=== PATIENT | female | born 1990 | race Caucasian/White ===

== ENCOUNTER 2018-02-13 15:58 | Outpatient (REF) | payer BC, SELFPAY ==
--- NOTE | 2018-02-13 11:00 | PAPFT_PTH ---
PATIENT: DWIGHT LUO LOC: [facility] U#:[id number] AGE/SX: 27/F ROOM: RE02/13/[address]: Ritika Black RN : 1990 BED: DIS: 02/13/2018 SPEC #: [id number] RECD: 02/13/18 18:50 STATUS: ARNAV REMaxwell #: [id number] NAVI: 02/13/18 11:[address]: Ritika Black DEPT: [facility] Cytology RECD BY: Yanira Guevara ENTERED: 02/13/18 18:50 SP TYPE: PAPFT OTHR DR: Radha Jeff Tissues: 1 - CX/ENDOCX FOR PAP SMEARS Procedures: PAP THIN PREP/UVM Screening Comments: [id number]
== END 2018-02-13 16:18 ==
LOC: LBN 15:58
PROVIDERS: PCP Family Medicine; Visit Provider Advanced Practice Midwife
DX: Z12.4 Encounter for screening for malignant neoplasm of cervix (principal)
CPT/HCPCS: 88142

== ENCOUNTER 2018-03-03 10:34 | Outpatient (CLI) | payer BC, SELFPAY ==
[2018-03-06 14:53] LABS: Chlamydia Result Negative; GC Result Negative; Specimen Description CERVIX
== END 2018-03-03 10:54 ==
PROVIDERS: PCP Family Medicine; Visit Provider Advanced Practice Midwife
DX: Z97.5 Presence of (intrauterine) contraceptive device (principal); Z11.3 Encounter for screening for infections with a predominantly sexual mode of transmission
CPT/HCPCS: 87491; 87591

== ENCOUNTER 2019-02-27 02:20 | Outpatient (CLI) | payer BC, SELFPAY ==
[2019-02-27 08:10] LABS: HCG Quant, Pregnancy < 1 mIU/mL (1-3)
== END 2019-02-27 02:40 ==
PROVIDERS: PCP Family Medicine; Visit Provider Nurse Practitioner Women's Health
DX: O20.9 Hemorrhage in early pregnancy, unspecified (principal); Z32.01 Encounter for pregnancy test, result positive
CPT/HCPCS: 36415; 84702

== ENCOUNTER 2019-04-03 14:19 | Outpatient (CLI) | payer BC, SELFPAY ==
[2019-04-03 15:11] LABS: HCG Quant, Pregnancy 1 mIU/mL (1-3)
== END 2019-04-03 14:39 ==
PROVIDERS: PCP Family Medicine; Visit Provider Nurse Practitioner Family
DX: O20.9 Hemorrhage in early pregnancy, unspecified (principal)
CPT/HCPCS: 36415; 84702

== ENCOUNTER → 2019-08-10 14:51 | Outpatient (REF) | payer BC, SELFPAY ==
[2019-08-10 16:57] LABS: *AMPHETAMINES SCREEN URINE Negative (Negative); *BARBITURATES SCREEN URINE Negative (Negative); *BENZODIAZEPINES SCREEN URINE Negative (Negative); Cannabinoids THC Negative (Negative); Cocaine Screen,Urine Negative (Negative); METHADONE URINE SCREEN Negative (Negative); OPIATES URINE SCREEN Negative (Negative)
[2019-08-10 17:09] LABS: Tricyclic Antidepressants Negative (Negative)
[2019-08-15 12:26] LABS: Buprenorphine Negative; Norbuprenorphine Negative
== END ==
LOC: LBN 14:51
PROVIDERS: PCP Family Medicine; Visit Provider Advanced Practice Midwife
DX: Z34.91 Encounter for supervision of normal pregnancy, unspecified, first trimester (principal)
CPT/HCPCS: 80307; 87086

== ENCOUNTER 2019-08-17 09:24 | Outpatient (CLI) | payer BC, SELFPAY ==
[2019-08-17 10:40] LABS: Abs Immature Grans 0.01 k/cumm (0.0-0.09); Absolute Basophil Count 0.02 k/cumm (0.0-0.2); Absolute Eosinophil Count 0.04 k/cumm (0.0-0.7); Absolute Lymphocyte Count 1.83 k/cumm (1.2-3.4); Absolute Neutrophil Count 5.96 k/cumm (1.2-6.7); Basophils % 0.2; Eosinophils % 0.5; HCT 38.3 % (36.0-46.0); HGB 13.1 g/dL (12.0-15.5); Immature Grans % 0.1 %; Lymphocytes % 21.9; Mean Corp. HGB Concentration 34.2 g/dL (32.0-36.0); Mean Corpuscular Hemoglobin 29.3 pg (27.0-33.0); Mean Corpuscular Volume 85.7 fL (80-95); Mean Platelet Volume 10.3 fL (8.0-11.0); Neutrophils % 71.3; Platelet Count 232 x1000/uL (130-400); RBC 4.47 m/cumm (4.00-5.20); RBC Distribution Width 12.9 % (11.7-14.6); White Blood Cell Count 8.36 k/cumm (4.4-10.8)
[2019-08-17 10:48] LABS: Glucose,1 Hr (Glucola) 109 mg/dL (80-140)
[2019-08-17 11:40] LABS: TSH (W/Ref FT4) 1.44 uIU/mL (0.36-3.74)
[2019-08-18 16:31] LABS: Syphilis Total Ab w/Reflex Nonreactive (Nonreactive)
[2019-08-20 08:56] LABS: Hepatitis B Surface Ag Negative (Negative)
[2019-08-20 10:24] LABS: Hepatitis C Ab w Rflx HCV PCR Negative (Negative)
[2019-08-20 10:39] LABS: HIV-1/2 Ag & Ab Screen Negative (Negative)
[2019-08-20 11:10] LABS: Varicella IgG Antibody Positive (See Note)
[2019-08-20 11:14] LABS: Rubella IgG Ab (UVM) Positive (See Note)
== END 2019-08-17 09:44 ==
PROVIDERS: PCP Family Medicine; Visit Provider Advanced Practice Midwife
DX: Z34.91 Encounter for supervision of normal pregnancy, unspecified, first trimester (principal); Z11.4 Encounter for screening for human immunodeficiency virus [HIV]; Z11.59 Encounter for screening for other viral diseases; Z01.84 Encounter for antibody response examination
CPT/HCPCS: 36415; 82950; 86787; 86803; 86850; 86900; 86901; 87340; 87389; 84443; 85025; 86762; 86780

== ENCOUNTER 2019-10-10 01:25 | Outpatient (CLI) | payer BC, SELFPAY ==
--- NOTE | 2019-10-10 06:30 | DI.US_ITS ---
EXAM: US OB 2-3 TRIMESTER CLINICAL HISTORY: 18 wk anatomy survey,Z34.90. TECHNIQUE: Transabdominal obstetrical ultrasound performed. COMPARISON: No exams were available for comparison FINDINGS: Transabdominal obstetrical ultrasound performed. FINDINGS: Number of fetuses: One. position: Variable heart rate: 140 bpm. Placental location: Anterior. No evidence of previa. A venous Dang is seen near the fundus. BIOMETRIC DATA: EFW: grms % Composite Age: 20 weeks 1 day EDC: 26 February 2020 Amount of fluid is within normal limits. ANATOMICAL SURVEY: Within normal limits. BPD: 47 millimeters, 20 weeks. HC: 178 millimeters, 20+ 2 weeks. AC: 151 millimeters, 20+ 2 weeks. FL: 32 millimeters, 19+ 6 weeks. Cisterna Magna: 3.8 millimeters Cerebellum: 2.1 cm. IMPRESSION: 1. Single live intrauterine gestation as above. 2. Normal anatomic survey. DATA REPOSITORY:
== END 2019-10-10 01:45 ==
PROVIDERS: PCP Family Medicine; Visit Provider Advanced Practice Midwife
DX: Z34.92 Encounter for supervision of normal pregnancy, unspecified, second trimester (principal); Z3A.20 20 weeks gestation of pregnancy
CPT/HCPCS: 76805

== ENCOUNTER 2019-12-19 01:12 | Outpatient (CLI) | payer BC, SELFPAY ==
[2019-12-19 09:38] LABS: Glucose,1 Hr (Glucola) 146 mg/dL (80-140)
[2019-12-19 09:49] LABS: HCT 36.5 % (36.0-46.0); HGB 12.2 g/dL (12.0-15.5); Mean Corp. HGB Concentration 33.4 g/dL (32.0-36.0); Mean Corpuscular Hemoglobin 29.4 pg (27.0-33.0); Mean Platelet Volume 10.9 fL (8.0-11.0); Platelet Count 198 x1000/uL (130-400); RBC 4.15 m/cumm (4.00-5.20); RBC Distribution Width 13.2 % (11.7-14.6); White Blood Cell Count 8.12 k/cumm (4.4-10.8)
== END 2019-12-19 01:32 ==
PROVIDERS: PCP Family Medicine; Visit Provider Advanced Practice Midwife
DX: Z34.93 Encounter for supervision of normal pregnancy, unspecified, third trimester (principal); Z3A.28 28 weeks gestation of pregnancy
CPT/HCPCS: 36415; 82950; 85027

== ENCOUNTER 2019-12-26 03:57 | Outpatient (CLI) | payer BC, SELFPAY ==
[2019-12-26 09:43] LABS: Glucose 1 Hour 120 mg/dL
[2019-12-26 11:15] LABS: Glucose 3 Hour 92 mg/dL
== END 2019-12-26 04:17 ==
PROVIDERS: PCP Family Medicine; Visit Provider Advanced Practice Midwife
DX: R73.09 Other abnormal glucose (principal)
CPT/HCPCS: 36410; 82951

== ENCOUNTER 2020-01-02 02:52 | Outpatient (CLI) | payer BC, SELFPAY | END 2020-01-02 03:12 | PROVIDERS: PCP Family Medicine; Visit Provider Advanced Practice Midwife | DX: R73.09 Other abnormal glucose (principal) | CPT/HCPCS: 36415; 86850; 90384 ==

== ENCOUNTER 2020-01-30 09:39 | Outpatient (REF) | payer BC, SELFPAY | END 2020-01-30 09:59 | LOC: LBN 09:39 | PROVIDERS: PCP Family Medicine; Visit Provider Advanced Practice Midwife | DX: Z34.93 Encounter for supervision of normal pregnancy, unspecified, third trimester (principal) | CPT/HCPCS: 87081 ==

== ENCOUNTER 2020-02-06 19:17 | Outpatient (REF) | payer BC, SELFPAY ==
[2020-02-06 11:19] LABS: *AMPHETAMINES SCREEN URINE Negative (Negative); *BARBITURATES SCREEN URINE Negative (Negative); *BENZODIAZEPINES SCREEN URINE Negative (Negative); Cannabinoids THC Negative (Negative); Cocaine Screen,Urine Negative (Negative); METHADONE URINE SCREEN Negative (Negative); OPIATES URINE SCREEN Negative (Negative)
[2020-02-06 11:20] LABS: Tricyclic Antidepressants Negative (Negative)
[2020-02-13 11:08] LABS: Buprenorphine Negative; Norbuprenorphine Negative
== END 2020-02-06 19:37 ==
LOC: LBN 19:17
PROVIDERS: PCP Family Medicine; Visit Provider Advanced Practice Midwife
DX: Z34.90 Encounter for supervision of normal pregnancy, unspecified, unspecified trimester (principal)
CPT/HCPCS: 80307

== ENCOUNTER 2020-02-26 15:05 | Observation (INO) | payer BC, SELFPAY ==
[2020-02-26 15:31] VITALS: TEMP 36.9
[2020-02-26 15:37] VITALS: BP 128/83; PULSE 104; RESP 18; TEMP 36.9
[2020-02-26 15:52] VITALS: BP 128/83; PULSE 104; TEMP 36.9
--- NOTE | 2020-02-26 16:35 | W.OBNST ---
Date of service: 02/26/20 Time of Service: 15:35 NST Evaluation Reason for NST Reasons for Nonstress Test: FALSE LABOR Gestational Age Gestational Age in Weeks and Days: 39 Weeks and 1Days Test and Monitor Explained Test/Monitor Explained: Test Explained, Monitor Explained and Patient Verbalized Understanding Vital Signs Blood Pressure: 128/83 Pulse: 104 Temperature: 98.4 F Urine Results Urine Protein: Negative Urine Ketones: Negative Urine Glucose: Negative Urine Blood: Negative NST Information Time on Monitor: 15:06 Date off Monitor: 02/26/20 Time off Monitor: 15:50 NST Interventions: PO Hydration Contraction Frequency: q 4, 40 seconds duration, mild NST Evaluation Patient States Movement: Present FHR Baseline: 130 Variability: Moderate 6-25 bpm Accelerations: 15x15 Decelerations: None NST Results: Reactive NST Evaluation Baby B Patient States Movement: Present Variability: Moderate 6-25 bpm Accelerations: 15x15 Decelerations: None NST Results: Reactive Note NST Note Note: Pt seen for increased back pain with mild cramping every 4-5 minutes. SVE 4/75% posterior with vtx -3, intact membranes, pt opts to go home to await active labor NST Reviewed and Verified by: Buffy Jang
[2020-02-26 16:37] VITALS: BP 128/83; PULSE 104; TEMP 36.9
--- NOTE | 2020-02-26 16:38 | W.PM.OBHPL1 ---
Date of service: 02/26/20 Time of Service: 16:38 Assessment and Plan Assessment and plan (1) 39 weeks gestation of : Status: Acute Assessment and plan: presents with primary complaint of back pain for 2 days with irregular mild lower abd cramps, no ROM, no bleeding, last coitus 3 days ago Category 1 tracing, reactive NST, cvx multiparous as noted, possible latent phase early labor vs discomforts of term A: discharge pt to home to await active labor reschedule appt from tomorrow to this Tuesday sx labor reviewed and discussed with pt comfort measures for back pain reviewed OB-HPI Labor/Delivery History of Present Illness Reason for Visit: R/O TERM LABOR Chief Complaint: Uterine Contractions; Other (increased mid-back pain since yesterday, nothing she does makes it feel better. Also feels lower abd cramping but not painful.). SRAVANI Calculator Estimated Delivery Date Method Current WG Current Estimate 03/03/20 LMP (Certain) 39w 1d Other Estimates 03/01/20 Ultrasound #1 39w 3d History of Present Expected Delivery Route/Plan - CNM FOB/ - Cedric Shin (third child together) BB no circ Interested in having waterbirth GBS neg Specific Issues/Plan 1. Declines optional AP testing, declination form signed 2. Breastfed for up to 3 months with each child, would like to go longer this time. 3. BMI 31, early glucola 109 4. Glucola at 29 wks is 146, 3 hr GTT nml x3: 95/120/158/92 (2nd hour elevated) 5. Rh neg, RhoGam at 28 wks - received 01/01 at 31 weeks 6. precipitous labors- partner works far away doing food delivery. Assessment: History Reviewed & Current Review of Systems All systems reviewed & are unremarkable except as noted in HPI and below Constitutional Constitutional: Reports as per HPI, Reports fatigue, Reports lethargy and Reports poor appetite Respiratory Respiratory: Reports as per HPI Gastrointestinal Gastrointestinal: Reports system reviewed and no additional complaints, except as documented Genitourinary Genitourinary: Reports system reviewed and no additional complaints, except as documented Psychiatric Psychiatric: Reports system reviewed and no additional complaints, except as documented Endocrine Endocrine: Reports fatigue [facility] Medical History (Updated 02/26/20 @ 16:44 by Buffy Jang) abnormalpap smears, last 07/01/15 ASCUS POS HPV HPV Vaccines Family History Mother Hyperlipidemia Father Personal history of malignant neoplasm lung cancer Heart disease Myocardial infarction 3 [place] Bypass Sister No problems noted. Brother No problems noted. Brother No problems noted. Brother No problems noted. Son No problems noted. Other Substance abuse Social History (Updated 02/09/18 @ 13:36 by Iesha Ramachandran RN) Smoking/Tobacco Use Status: Former Tobacco Use Quit Date: 07/07/15 Quit status: has quit before Alcohol Intake: never Substance use type: does not use Adopted: No Foster care: No Number of Children: 2 current occupation: [employer] Pets and animals: Yes Pets and animals: cat(s) Current gender identity: female What is your relationship status?: Panel score (0-1 are the most socially isolated patients): 1 Seatbelt use: always Do you feel safe in your relationship?: Yes Female Reproductive History Menstrual control method: progestin IUCD (Mirena lot#[id number] exp 07/2020) History History 4 Para 3 Hx # Term Pregnancies 3 Multiple births 0 Hx # Pregnancies 0 Ectopic pregnancies 0 AB induced 0 Hx Number of Living Children 3 AB spontaneous 0 Past Pregnancies Del. Date GA/Weeks # Outcome Route Wgt Sex Labor Lgth Anesthesia Location Prov Complic 03/05/09 41 No Successful vaginal 6 lb 13 oz Male [address] [facility] 07/02/16 39 Yes Successful vaginal 6 lb 11 oz Female 2-3 hrs [facility] - locums CNM 01/06/18 38 No Successful vaginal 6 lb 11 oz Female 2-3 hr [facility] - [place] Delivery Date: 03/05/09 IOL for postdates Giovani; epidural Buffy Jang Delivery Date: 07/02/16 nml Buffy Fernández Delivery Date: 01/06/18 nml Nelsy Jade Meds Home Medications and Allergies Home Medications Medication Instructions Recorded Confirmed Type prenat.vits,sakina,ywh-clua-muueh 1 tab PO DAILY 02/27/19 02/20/20 History Allergies Allergy/AdvReac Type Severity Reaction Status Date / Time No Known Allergies Allergy Unverified 02/20/20 14:14 Exam Physical Exam Vital signs: Temp Pulse Resp BP 98.4 F 104 H 18 128/83 02/26/20 15:37 02/26/20 15:37 02/26/20 15:37 02/26/20 15:37 Vital Signs Reviewed: Yes Constitutional Constitutional: mild distress and average body habitus Detailed Labor and Delivery Exam Dilation: 4 Effacement (%): 75 station: -3 Cervix position: posterior Consistency: soft Schneider Score: Cervical Points Exam 0 1 2 3 Dilation Closed 1-2cm 3-4 cm 5-6cm Effacement 0-30% 40-50% 60-70% 80% Consistency Firm Medium Soft Station -3 -2 -1,0 +1,+2 Position Posterior Mid Anterior SCHNEIDER Score(Cervical Ripeness Score): 6 Amniotic Membrane Status: Intact Monitor Mode: External Contraction Frequency(min): irregular Contraction Duration(sec): 30-40 seconds Contraction Intensity: Mild Fetus A Heart Rate Baseline: 135 Monitor Accelerations: 15 X 15 Monitor Decelerations: None Variability: Moderate (6-25 BPM) Presentation: Cephalic Categories: Category I Respiratory Exam Respiratory Exam: Normal Cardiovascular Exam Cardiovascular Exam: Normal Abdominal Exam Abdominal Exam: Normal Exam Exam: Normal Extremities Exam Extremities Exam: Normal Back/Spine/Pelvis Exam Back Exam: Normal Pelvis Adequate: Yes Skin Exam Skin Exam: Normal Psychiatric Exam Psychiatric Exam: Normal Results Results Group Beta Strep: Negative Blood Type: AB- Rubella Status: Immune Varicella Immunity: Immune Risk Assessment Risk for Shoulder Dystocia Historical/Initial OB: POSITIVE FOR: Pre- BMI>30; NEGATIVE FOR: Pelvic Abnormality, Previous Shoulder Dystocia or Previous Macrosomia Increased Risk?: Yes Delivery Plan @ 36wks: , spont labor Risk for Pre-Eclampsia Daily Dose ASA Indicated: No Yes, if one or more: NEGATIVE FOR: Hx Pre-E/Gest HTN, Chronic HTN, Multiple Gestation, Pre-gestational DM, Renal Disease, Systemic Lupus or APA Syndrome Yes, if 2 or more: POSITIVE FOR: BMI>30; NEGATIVE FOR: Nulliparity, Age>= 35 yrs, >10yr btwn pregnancies, ethinicty, Mother/Sister w/ Pre-E or Previous IUGR Risk for Post- Hemorrhage Initial: NEGATIVE FOR: Multiple Gestation, Previous PPH, Known Clotting Deficiency, Grand Multiparity or Anticoagulation At Risk?: No Risks Reviewed Risks Reviewed Upon Admission: Yes
[2020-03-01 23:44] VITALS: BP 127/84; PULSE 77
[2020-03-02] VITALS (28 sets, daily range): BP systolic 121–155; BP diastolic 71–86; PULSE 59–85; O2SAT 93–100
== END 2020-02-26 16:35 | disposition home or self-care (01) ==
PROVIDERS: Admitting Provider Advanced Practice Midwife; PCP Family Medicine; Visit Provider Advanced Practice Midwife
DX: O47.1 False labor at or after 37 completed weeks of gestation (principal); Z3A.39 39 weeks gestation of pregnancy
CPT/HCPCS: 59025

== ENCOUNTER 2020-03-01 14:07 | Observation (INO) | payer BC, SELFPAY ==
--- NOTE | 2020-03-02 | HPE_ITS ---
Date of service: 03/01/20 Time of Service: 16:00 Assessment and Plan Assessment and plan (1) 39 weeks gestation of : Status: Acute Assessment and plan: irregular mild contractions. No evidence of active labor after 1 hour. Signs of labor reviewed. Returned home to await active labor. OB-HPI Labor/Delivery History of Present Illness Reason for Visit: RULE OUT LABOR Chief Complaint: Uterine Contractions. SRAVANI Calculator Estimated Delivery Date Method Current WG Current Estimate 03/03/20 LMP (Certain) 39w 5d Other Estimates 03/01/20 Ultrasound #1 40w 0d History of Present Expected Delivery Route/Plan - CNM FOB/ - Cedric Shin (third child together) BB no circ Interested in having waterbirth GBS neg Specific Issues/Plan 1. Declines optional AP testing, declination form signed 2. Breastfed for up to 3 months with each child, would like to go longer this time. 3. BMI 31, early glucola 109 4. Glucola at 29 wks is 146, 3 hr GTT nml x3: 95/120/158/92 (2nd hour elevated) 5. Rh neg, RhoGam at 28 wks - received 01/01 at 31 weeks 6. precipitous labors- partner works far away doing food delivery. Assessment: History Reviewed & Current [facility] Medical History (Updated 03/01/20 @ 23:30 by Rachele Cali CNM) abnormalpap smears, last 07/01/15 ASCUS POS HPV HPV Vaccines Family History Mother Hyperlipidemia Father Personal history of malignant neoplasm lung cancer Heart disease Myocardial infarction 3 [place] Bypass Sister No problems noted. Brother No problems noted. Brother No problems noted. Brother No problems noted. Son No problems noted. Other Substance abuse Social History (Updated 02/09/18 @ 13:36 by Iesha Ramachandran RN) Smoking/Tobacco Use Status: Former Tobacco Use Quit Date: 07/07/15 Quit status: has quit before Alcohol Intake: never Substance use type: does not use Adopted: No Foster care: No Number of Children: 2 current occupation: [employer] Pets and animals: Yes Pets and animals: cat(s) Current gender identity: female What is your relationship status?: Panel score (0-1 are the most socially isolated patients): 1 Seatbelt use: always Do you feel safe in your relationship?: Yes Female Reproductive History Menstrual control method: progestin IUCD (Mirena lot#[id number] exp 07/2020) History History 4 Para 3 Hx # Term Pregnancies 3 Multiple births 0 Hx # Pregnancies 0 Ectopic pregnancies 0 AB induced 0 Hx Number of Living Children 3 AB spontaneous 0 Past Pregnancies Del. Date GA/Weeks # Outcome Route Wgt Sex Labor Lgth Anesthes ia Location Prov Complic 03/05/09 41 No Successful vaginal 6 lb 13 oz Male [address] [facility] 07/02/16 39 Yes Successful vaginal 6 lb 11 oz Female 2-3 hrs [facility] - loc[facility] CNM 01/06/18 38 No Successful vaginal 6 lb 11 oz Female 2-3 hr [facility] - [facility] Delivery Date: 03/05/09 IOL for postdates Giovani; epidural Buffy Jang Delivery Date: 07/02/16 nml Keeva Buffy Jang Delivery Date: 01/06/18 nml , Nelsy Buffy Jang Meds Home Medications and Allergies Home Medications Medication Instructions Recorded Confirmed Type prenat.vits,sakina,tjf-rkdp-bekti 1 tab PO DAILY 02/27/19 02/20/20 History Allergies Allergy/AdvReac Type Severity Reaction Status Date / Time No Known Allergies Allergy Unverified 02/29/20 15:33 Exam Detailed Labor and Delivery Exam Dilation: 5 Effacement (%): 100 station: -1 Consistency: soft Jain Score: Cervical Points Exam 0 1 2 3 Dilation Closed 1-2cm 3-4 cm 5-6cm Effacement 0-30% 40-50% 60-70% 80% Consistency Firm Medium Soft Station -3 -2 -1,0 +1,+2 Position Posterior Mid Anterior Amniotic Membrane Status: Intact Fetus A Heart Rate Baseline: 130 Monitor Accelerations: 15 X 15 Monitor Decelerations: None Variability: Moderate (6-25 BPM) Presentation: Vertex Categories: Category I Exam Exam: Normal Psychiatric Exam Psychiatric Exam: Normal Risk Assessment Risk for Shoulder Dystocia Historical/Initial OB: POSITIVE FOR: Pre- BMI>30 (BMI 30.9); NEGATIVE FOR: Pelvic Abnormality, Previous Shoulder Dystocia or Previous Macrosomia 40 Weeks: NEGATIVE FOR: EFW> 4500 gms, Maternal Weight Gain >40lb or Post Dates Increased Risk?: Yes Delivery Plan @ 36wks: , spont labor Risk for Pre-Eclampsia Daily Dose ASA Indicated: No Yes, if one or more: NEGATIVE FOR: Hx Pre-E/Gest HTN, Chronic HTN, Multiple Gestation, Pre-gestational DM, Renal Disease, Systemic Lupus or APA Syndrome Yes, if 2 or more: POSITIVE FOR: BMI>30; NEGATIVE FOR: Nulliparity, Age>= 35 yrs, >10yr btwn pregnancies, [place] ethinicty, Mother/Sister w/ Pre-E or Previous IUGR Risk for Post- Hemorrhage Initial: NEGATIVE FOR: Multiple Gestation, Previous PPH, Known Clotting Deficiency, Grand Multiparity or Anticoagulation At Risk?: No Risks Reviewed Risks Reviewed Upon Admission: Yes
--- NOTE | 2020-03-02 00:04 | DSE_ITS ---
Date of service: 03/01/20 Time of Service: 16:30 DS: Diagnosis Discharge Diagnosis (1) 39 weeks gestation of : Status: Acute Discharge Plan Disposition Patient Disposition: HOME Condition: Good Discharge Details Reason For Visit: RULE OUT LABOR Admit Date/Time: 03/01/20 14:07 Admit Provider: Rachele Cali Attending Provider: Rachele Cali Primary Care Provider: Radha Jeff Home Meds and New Rx's Prescriptions: No Action prenat.vits,sakina,wbr-ksth-tasnc Tablet 1 tab PO DAILY RF: 0 Discharge Instructions Activity:: Activity as Tolerated Equipment/Supplies:: No Equipment Needed Diet:: As Tolerated Discharge Orders Discharge Orders: Discharge Order (Routine); Ordered 03/01/20 Ordered By: Rachele Cali Discharge Data Discharge Date/Time-TO BE ENTERED AT DEPARTURE: 03/01/20 14:55 Discharge Comment: D/C home, instructed to call w/ any changes OB:DS Summary Contraception Discussed Contraception Discussed: No (will discuss after delivery), Status at Discharge Functional status at discharge: independent ambulation Overall status at discharge: patient is back to baseline Mental Status: mental status grossly normal Speech and Movement: speech and movement normal Mood: congruent mood Affect: normal affect [facility] Medical History (Updated 03/01/20 @ 23:30 by Rachele Cali CNM) abnormalpap smears, last 07/01/15 ASCUS POS HPV HPV Vaccines Family History Mother Hyperlipidemia Father Personal history of malignant neoplasm lung cancer Heart disease Myocardial infarction 3 [place] Bypass Sister No problems noted. Brother No problems noted. Brother No problems noted. Brother No problems noted. Son No problems noted. Other Substance abuse Social History (Updated 02/09/18 @ 13:36 by Iesha Ramachandran RN) Smoking/Tobacco Use Status: Former Tobacco Use Quit Date: 07/07/15 Quit status: has quit before Alcohol Intake: never Substance use type: does not use Adopted: No Foster care: No Number of Children: 2 current occupation: [employer] Pets and animals: Yes Pets and animals: cat(s) Current gender identity: female What is your relationship status?: Panel score (0-1 are the most socially isolated patients): 1 Seatbelt use: always Do you feel safe in your relationship?: Yes Female Reproductive History Menstrual control method: progestin IUCD (Mirena lot#[id number] exp 07/2020) History History 4 Para 3 Hx # Term Pregnancies 3 Multiple births 0 Hx # Pregnancies 0 Ectopic pregnancies 0 AB induced 0 Hx Number of Living Children 3 AB spontaneous 0 Past Pregnancies Del. Date GA/Weeks # Outcome Route Wgt Sex Labor Lgth Anesthes ia Location Prov Complic 03/05/09 41 No Successful vaginal 6 lb 13 oz Male [address] [place] 07/02/16 39 Yes Successful vaginal 6 lb 11 oz Female 2-3 hrs [facility] - locums CNM 01/06/18 38 No Successful vaginal 6 lb 11 oz Female 2-3 hr [facility] - [place] Delivery Date: 03/05/09 IOL for postdates Giovani; epidural Buffy Jang Delivery Date: 07/02/16 nml Buffy Fernández Delivery Date: 01/06/18 nml , Buffy Sparrow DS: Data Data Completed and Pending Labs on day of discharge: Labs from last 24 hours 03/01/20 03/01/20 14:07 14:07 WBC Cancelled RBC Cancelled Hgb Cancelled Hct Cancelled MCV Cancelled MCH Cancelled MCHC Cancelled RDW Cancelled Plt Count Cancelled MPV Cancelled Patient ABO/Rh Cancelled
== END 2020-03-01 14:55 | disposition home or self-care (01) ==
PROVIDERS: Admitting Provider Advanced Practice Midwife; PCP Family Medicine; Visit Provider Advanced Practice Midwife
DX: O47.1 False labor at or after 37 completed weeks of gestation (principal); Z3A.39 39 weeks gestation of pregnancy
CPT/HCPCS: 85027; 86900; 86901; G0378

== ENCOUNTER 2020-03-01 22:32 | Inpatient (IN) | payer BC, SELFPAY ==
[2020-03-01 22:30] VITALS: BP 122/76; PULSE 92; RESP 18; TEMP 36.6
[2020-03-01 22:45] VITALS: BP 122/76; PULSE 92; RESP 18; TEMP 36.6
[2020-03-01 22:52] LABS: HCT 37.6 % (36.0-46.0); HGB 12.3 g/dL (11.2-15.7); MCHC 32.7 % (32.0-36.0); MCV 85.5 fL (80-95); MPV 11.1 fL (8.0-11.0); Platelet Count 186 10^3/uL (130-400); RDW 12.8 % (11.7-14.6); RDW-SD 39.6 fL; WBC 14.86 10^3/uL (4.4-10.8)
[2020-03-01 23:20] VITALS: BP 122/76; PULSE 92; RESP 18; TEMP 36.6
--- NOTE | 2020-03-01 23:27 | W.PM.OBHPL1 ---
Date of service: 03/01/20 Time of Service: 23:27 Assessment and Plan Assessment and plan (1) 39 weeks gestation of : Status: Acute Assessment and plan: Admit to Center. Comfort measures. Covid- 19 test. Anticipate . OB-HPI Labor/Delivery History of Present Illness Reason for Visit: RULE OUT LABOR Chief Complaint: Uterine Contractions. SRAVANI Calculator Estimated Delivery Date Method Current WG Current Estimate 03/03/20 LMP (Certain) 39w 5d Other Estimates 03/01/20 Ultrasound #1 40w 0d Comments: Zayda reported strong, regular contractions at home and presents in active labor. GBS neg History of Present Expected Delivery Route/Plan - CNM FOB/ - Cedric Shin (third child together) BB no circ Interested in having waterbirth GBS neg Specific Issues/Plan 1. Declines optional AP testing, declination form signed 2. Breastfed for up to 3 months with each child, would like to go longer this time. 3. BMI 31, early glucola 109 4. Glucola at 29 wks is 146, 3 hr GTT nml x3: 95/120/158/92 (2nd hour elevated) 5. Rh neg, RhoGam at 28 wks - received 01/01 at 31 weeks 6. precipitous labors- partner works far away doing food delivery. Assessment: History Reviewed & Current Informed Consent Informed Consent: Risk,Benefits,Alternatives Discussed [facility] Medical History (Updated 03/01/20 @ 23:30 by Rachele Cali CNM) abnormalpap smears, last 07/01/15 ASCUS POS HPV HPV Vaccines Family History Mother Hyperlipidemia Father Personal history of malignant neoplasm lung cancer Heart disease Myocardial infarction 3 [place] Bypass Sister No problems noted. Brother No problems noted. Brother No problems noted. Brother No problems noted. Son No problems noted. Other Substance abuse Social History (Updated 02/09/18 @ 13:36 by Iesha Ramachandran RN) Smoking/Tobacco Use Status: Former Tobacco Use Quit Date: 07/07/15 Quit status: has quit before Alcohol Intake: never Substance use type: does not use Adopted: No Foster care: No Number of Children: 2 current occupation: [employer] Pets and animals: Yes Pets and animals: cat(s) Current gender identity: female What is your relationship status?: Panel score (0-1 are the most socially isolated patients): 1 Seatbelt use: always Do you feel safe in your relationship?: Yes Female Reproductive History Menstrual control method: progestin IUCD (Mirena lot#[id number] exp 07/2020) History History 4 Para 3 Hx # Term Pregnancies 3 Multiple births 0 Hx # Pregnancies 0 Ectopic pregnancies 0 AB induced 0 Hx Number of Living Children 3 AB spontaneous 0 Past Pregnancies Del. Date GA/Weeks # Outcome Route Wgt Sex Labor Lgth Anesthesia Location Prov Complic 03/05/09 41 No Successful vaginal 6 lb 13 oz Male [address] [facility] 07/02/16 39 Yes Successful vaginal 6 lb 11 oz Female 2-3 hrs [facility] - locums CNM 01/06/18 38 No Successful vaginal 6 lb 11 oz Female 2-3 hr [facility] - [facility] Delivery Date: 03/05/09 IOL for postdates Giovani; epidural Buffy Jang Delivery Date: 07/02/16 nml Keeva Buffy Jang Delivery Date: 01/06/18 nml , Nelsy Buffy Jang [place] Home Medications and Allergies Home Medications Medication Instructions Recorded Confirmed Type prenat.vits,sakina,fam-nike-zyvfo 1 tab PO DAILY 02/27/19 02/20/20 History Allergies Allergy/AdvReac Type Severity Reaction Status Date / Time No Known Allergies Allergy Unverified 02/29/20 15:33 Exam Physical Exam Vital Signs Reviewed: Yes Constitutional Constitutional: no acute distress Detailed Labor and Delivery Exam Dilation: 7 Effacement (%): 100 station: -1 Cervix position: mid Consistency: soft Jain Score: Cervical Points Exam 0 1 2 3 Dilation Closed 1-2cm 3-4 cm 5-6cm Effacement 0-30% 40-50% 60-70% 80% Consistency Firm Medium Soft Station -3 -2 -1,0 +1,+2 Position Posterior Mid Anterior Amniotic Membrane Status: Intact Pooling: Negative Fetus A Heart Rate Baseline: 120 Monitor Accelerations: 15 X 15 Monitor Decelerations: None Variability: Moderate (6-25 BPM) Presentation: Cephalic Categories: Category I Est. Weight: 6 lb Neck Exam Neck Exam: Normal Respiratory Exam Respiratory Exam: Normal Cardiovascular Exam Cardiovascular Exam: Normal Abdominal Exam Abdominal Exam: Normal Exam Exam: Normal Extremities Exam Extremities Exam: Normal Skin Exam Skin Exam: Normal Results Results Group Beta Strep: Negative Blood Type: AB- Rubella Status: Immune Varicella Immunity: Immune Abnormal Lab Findings: Abnormal Labs 03/01/20 22:44 WBC 14.86 H MPV 11.1 H Risk Assessment Risk for Shoulder Dystocia Historical/Initial OB: POSITIVE FOR: Pre- BMI>30 (BMI 30.9); NEGATIVE FOR: Pelvic Abnormality, Previous Shoulder Dystocia or Previous Macrosomia 40 Weeks: NEGATIVE FOR: EFW> 4500 gms, Maternal Weight Gain >40lb or Post Dates Increased Risk?: Yes Delivery Plan @ 36wks: , spont labor Risk for Pre-Eclampsia Daily Dose ASA Indicated: No Yes, if one or more: NEGATIVE FOR: Hx Pre-E/Gest HTN, Chronic HTN, Multiple Gestation, Pre-gestational DM, Renal Disease, Systemic Lupus or APA Syndrome Yes, if 2 or more: POSITIVE FOR: BMI>30; NEGATIVE FOR: Nulliparity, Age>= 35 yrs, >10yr btwn pregnancies, ethinicty, Mother/Sister w/ Pre-E or Previous IUGR Risk for Post- Hemorrhage Initial: NEGATIVE FOR: Multiple Gestation, Previous PPH, Known Clotting Deficiency, Grand Multiparity or Anticoagulation At Risk?: No Risks Reviewed Risks Reviewed Upon Admission: Yes
[2020-03-01 23:45] VITALS: BP 127/84; PULSE 77; RESP 18; TEMP 36.6
[2020-03-02] VITALS (26 sets, daily range): BP systolic 92–153; BP diastolic 58–86; PULSE 59–101; RESP 16–24; TEMP 36.6–37.4; O2SAT 98–100
[2020-03-02] MEDS: Calcium Carbonate *TUMS* 500 MG CHEW 1000 MG PO (00:40)
[2020-03-02] MEDS: Oxytocin 10 UNITS/ML VIAL IM (02:15)
[2020-03-02] MEDS: Oxytocin/Normal Saline 30 UNIT/500 ML BAG 95 UNITS IV ×2 (02:45→07:50)
[2020-03-02] MEDS: Methylergonovine 0.2 MG/ML VIAL IM (02:59)
[2020-03-02] MEDS: Acetaminophen 325 MG TAB 650 MG PO ×2 (03:00→21:26)
[2020-03-02] MEDS: Ibuprofen 600 MG TAB PO ×3 (03:00→21:26)
--- NOTE | 2020-03-02 03:01 | W.PM.OBPNV1 ---
Date of service: 03/02/20 Time of Service: 03:02 Assessment and Plan Assessment and plan (1) hemorrhage, third stage, delivered: Status: Acute Assessment and plan: Will continue to assess. Frequent vital signs and oxygen saturation. Will start methergine PO 0.2 mg now. Consider MD consult if bleeding continues. Subjective Subjective Interval history: Zayda delivered over intact perineum and had bright bleeding after delivery for aapproximately 450 cc. The reported vaginal bleeding. The uterus was boggy and with massage approximately 300 cc of clots were expressed. Methergine 0.2 mg was given IM and an IV was started and pitocin was infused rapidly per protocol. More clots were removed manually and the pitocin is infusing. Zayda tolerated the exam and declined nitrous oxide for pain. Vital signs remain stable. Exam Physical Exam Vital signs: Temp Pulse Resp BP 98 F 77 18 127/84 03/01/20 23:45 03/01/20 23:45 03/01/20 23:45 03/01/20 23:45 Fundal Exam Fundus: Below Umbilicus (4 FB below umbilicus) and Firm (firms with vigorous massage. ) Results Hemoglobin/Hematocrit: Hgb 12.3 g/dL (11.2-15.7) 03/01/20 22:44 Hct 37.6 % (36.0-46.0) 03/01/20 22:44 Abnormal Lab Findings: Abnormal Labs 03/01/20 22:44 WBC 14.86 H MPV 11.1 H
[2020-03-02] MEDS: Lactated Ringers 1,000 ML 125 ML IV ×3 (03:15→14:37)
--- NOTE | 2020-03-02 06:48 | W.PM.OBPNV1 ---
Date of service: 03/02/20 Time of Service: 06:48 Assessment and Plan Assessment and plan (1) hemorrhage, third stage, delivered: Status: Acute Assessment and plan: Fundus was firm and down [address] Ricketts's exam. Will continue to assess and encourage rest, CBC, fibrinogen, PT and PTT ordered stat.IV pitocin bolus per protocol. Subjective Subjective Interval history: Zayda received 500 cc of 30 units pitocin in 500 cc NS. She felt well and bleeding was stable. She got up to the shower and voided. After returning to blood, she passed clots and had heavy bleeding for approximately 300 cc. Straight cath. for a small amount of urine. Zayda is teary and frustrated because she hasn't been able to sleep after delivery. She requested to get up to the commode and she passed an additional 200 cc of clots and felt mch better. I called Chivo Ricketts who recommended restarting the pitocin and a bolus was ordered. Dr. Ricketts came in to assess her and a small amount of clots were passed with her exam. Exam Physical Exam Vital signs: Temp Pulse Resp BP 98 F 77 18 127/84 03/01/20 23:45 03/01/20 23:45 03/01/20 23:45 03/01/20 23:45 Results Hemoglobin/Hematocrit: Hgb 12.3 g/dL (11.2-15.7) 03/01/20 22:44 Hct 37.6 % (36.0-46.0) 03/01/20 22:44 Abnormal Lab Findings: Abnormal Labs 03/01/20 22:44 WBC 14.86 H MPV 11.1 H Procedure Procedures: Control of Hemorrhage (extraction of clots) , stat labwork
[2020-03-02 07:01] LABS: HCT 28.6 % (36.0-46.0); HGB 9.4 g/dL (11.2-15.7); MCH 28.3 pg (27.0-33.0); MCHC 32.9 % (32.0-36.0); MCV 86.1 fL (80-95); MPV 11.3 fL (8.0-11.0); Platelet Count 183 10^3/uL (130-400); RBC 3.32 10^6/uL (3.93-5.22); RDW-SD 40.6 fL; WBC 17.02 10^3/uL (4.4-10.8)
--- NOTE | 2020-03-02 07:03 | W.OBDELIVERY ---
Date of service: 03/02/20 Time of Service: 03:00 OB Labor/ Delivery Information Providers Nurse Ground Service Equipment Mechanic: Rachele Cali Nurse: Radha Looney Nurse: Kimberley Shafer Labor/Delivery Information Number of Babies in Womb: 1 Steroids Given: None Reason Steroids Not Administered: N/A Group Beta Strep: Negative Rubella Status: Immune Blood Type: AB- Varicella Immunity: Immune Medication in Delivery: none Shoulder Dystocia: No Stages of Labor Onset of Labor Date: 03/01/20 Onset of Labor Time: 15:00 Complete Dilatation Date: 03/02/20 Complete Dilatation Time: 01:52 Labor - Stage 1 Duration: 24 hours and 0 minutes Infant Delivery Date-Baby A: 03/02/20 Delivery Time-Baby A: 01:56 Labor Stage 2 Duration: 4 minutes Placenta Delivery Date-Baby A: 03/02/20 Placenta Delivery Time-Baby A: 02:15 Labor-Stage 3 Duration: 19 minutes Total Length of Labor-Baby A: 10 hours and 56 minutes Placenta Cultured: No Placenta Status: Delivered Baby A Gender: Male Gestational Status: Term Gestational Age in Weeks/Days: 40 Weeks and 1 Days weight: 7 lb 8.637 oz Score-1 Minute Interval(Baby A) Heart Rate-1 minute: 100 BPM or Greater Respiratory Effort- 1 minute: Spontaneous/Strong Cry Muscle Tone-1 minute: Minimal Flexion/Extension Reflex Response-1 minute: Prompt Response Color-1 minute: Pallor or Cyanosis Total Score-1 minute: 7 Score-5 Minute Interval(Baby A) Heart Rate- 5 minute: 100 BPM or Greater Respiratory Effort-5 minute: Spontaneous/Strong Cry Muscle Tone-5 minute: Active Movement Reflex Response-5 minute: Prompt Response Color-5 minute: Bluish Hands or Feet Total Score- 5 minute: 9 Note: FHTs 130s during first stage of labor. FHTs 130 in second stage. Progressed to full dilation and began pushing. Spontaneous delivery of infant delivered in IVETTE position. Baby was placed on mother's abdomen and dried and stimulated. Spontaneous cry. Cord was clamped and cut by the father of the baby . Zayda was moved from the floor to the bed and bright bleeding was noted. The placenta delivered spontaneously and appears to by intact with a three vessel cord. Pitocin 10 Units IM was administered before delivery of the placenta. Cytotec 400 mcg PO given after delivery of the placenta. The perineum was inspected and was found to be intact. The anterior cervix was inspected and found to be intact . The baby did breastfeed. EBL 450 cc. After delivery, Mother and baby and father of the baby were stable and bonding well in the delivery room. Baby A Delivery Delivery Method: Spontaneaous Presentation: Cephalic Cephalic Position: Vertex Vertex Position: Left Occipital Anterior Cord Description-Baby A: 3 Vessels Membrane Rupture: Artificial Amniotic Fluid: Clear Amniotic Fluid Amount: Small Amniotic Fluid Odor: None Delivery Outcome: Liveborn Procedure Procedures: Control of Hemorrhage (IM pitocin prior to the placenta delivery, cytotec 400 mcg PO. At one hour post , IV pitocin 30 units started and infused rapidly with LR at 125 cc/hr. Methergine 0.2 mg O and IM ) , given and expression of clots with good results
[2020-03-02 07:15] LABS: INR 0.9 (0.9-1.1); PTT Activated 23.3 sec (21.0-31.4); Prothrombin Time 9.3 sec (9.3-11.0)
[2020-03-02] MEDS: Carboprost 250 MCG/ML AMP (07:37)
[2020-03-02] MEDS: Carboprost 250 MCG/ML AMP IM (07:42)
[2020-03-02] MEDS: Loperamide 2 MG CAP PO (08:39)
[2020-03-02 09:32] LABS: Fibrinogen (Stat) (Littleton) 340 mg/dL (208-434)
--- NOTE | 2020-03-02 09:34 | NUR.NOTE ---
0920 pt OOB to commode, passed baseball sized clot and urinated and had loose stool. Lochia is small, flow has slowed. Will continue to monitor
--- NOTE | 2020-03-02 10:30 | NUR.NOTE ---
Nursing Note: 0950-Fundus less firm, -2. peripad changed, 75g lochia, no clots 1010-small clot passed with void on toilet, moderate flow, peripad changed, Dr Jamarcus MD notified and given SBAR. Pit ordered to be increased to 125ml/hr. POC discussed and will continue to closely monitor pt with lochia checks q hour
--- NOTE | 2020-03-02 11:19 | W.PM.OBPNV1 ---
Date of service: 03/02/20 Time of Service: 11:20 Assessment and Plan Assessment and plan (1) hemorrhage, third stage, delivered: Status: Acute Assessment and plan: Zayda stated that she was told during this that she may have had a tear in her placenta but that it had healed. Will proceed with D and C procedure. Subjective Subjective Interval history: Zayda has been resting. She had increased flow when she got up to the bathroom at 1000. Dr. Obrien ordered the pitocin infusion to be increased from 95 cc/hr. to 125 cc/hr. I was called to assess the patient after she got up to the commode at 11:10. She had soaked her pad in 1 hour for 200 cc of bright blood with clots. I called Dr. Obrien who discussed D and C procedure with Zayda and she was consented. Zayda is tearful and expressing fear of anesthesia which she has never had. Hgb 9.4/ HCT 28.6 Exam Physical Exam Vital signs: Temp Pulse Resp BP 99.1 F 77 18 113/59 L 03/02/20 08:00 03/02/20 08:00 03/02/20 08:00 03/02/20 08:00 Vital Signs Reviewed: Yes Constitutional Constitutional: severe distress Comments: due to fears about anesthesia Abdominal Exam Comments: Fundus firm after passing clots down 4 FB Results Hemoglobin/Hematocrit: Hgb 9.4 g/dL (11.2-15.7) L D 03/02/20 06:49 Hct 28.6 % (36.0-46.0) L D 03/02/20 06:49 Abnormal Lab Findings: Abnormal Labs 03/01/20 03/02/20 22:44 06:49 WBC 14.86 H 17.02 H RBC 3.32 L Hgb 9.4 L D Hct 28.6 L D MPV 11.1 H 11.3 H
--- NOTE | 2020-03-02 11:39 | NUR.NOTE ---
Nursing Note: 11:10- pt woke from nap and felt gush of fluid. Peripad saturated and underpad had blood on it. Total weighed loss was 205g. CNM notified and came in room to see pt, pt voided 150 ml urine in bedside commode. Lochia assessed by CNM and MD notified. 11:20 Decision to go to OR for D&C made, supervisor customer complaint service notified
--- NOTE | 2020-03-02 11:45 | HPE_ITS ---
Date of service: 03/02/20 Time of Service: 11:45 Assessment and Plan Assessment and plan (1) hemorrhage, third stage, delivered: Status: Acute Assessment and plan: Informed consent was obtained for a cervical dilation and uterine curettage. I described the procedure to the patient and described the risks including infection bleeding damage to surrounding structures. I informed her in the event of continued bleeding that a laparotomy may be required. She had no further questions for me. History of Present Illness History of Present Illness Chief Complaint: Continued bleeding after Narrative: Patient is a 29-year-old multiparous female who underwent a spontaneous vaginal delivery at 1:56 AM on 03/02/2020. Her labor was uneventful and the placenta delivered at 2:15 AM intact with a normal configuration three- vessel cord. Initial blood loss was considered within normal limits for vaginal delivery without perineal or vaginal lacerations. However over the course of our she had persistent bleeding treated with Methergine initiation of oxytocin infusion followed by Cytotec. Patient continued to have clotting requiring expression with uterine massage. I was consulted at approximately 6:00 and upon arrival to the center performed a bimanual exam the cervix was intact there is no evidence of clots in the lower uterine segment the fundus was 3 fingers below the umbilicus. A H/H was obtained showing a decrease in the hematocrit from 37.6% to 28.6%. Recommended the oxygenation review to be continued and after approximately 4 more hours of observation she continued to have passage of clots albeit with small volumes of blood loss but overall approximately 200 to 300 cc of blood loss after her initial H&H. Decision was made to proceed with a cervical dilation and uterine curettage. I obtained informed consent from the patient and her . ORT was notified Review of Systems All systems reviewed & are unremarkable except as noted in HPI and below PFSH Medical History (Updated 03/02/20 @ 03:04 by Rachele Cali CNM) abnormalpap smears, last 07/01/15 ASCUS POS HPV HPV Vaccines Family History Mother Hyperlipidemia Father Personal history of malignant neoplasm lung cancer Heart disease Myocardial infarction 3 [place] Bypass Sister No problems noted. Brother No problems noted. Brother No problems noted. Brother No problems noted. Son No problems noted. Other Substance abuse Social History (Updated 02/09/18 @ 13:36 by Iesha Ramachandran RN) Smoking/Tobacco Use Status: Former Tobacco Use Quit Date: 07/07/15 Quit status: has quit before Alcohol Intake: never Substance use type: does not use Adopted: No Foster care: No Number of Children: 2 current occupation: [employer] Pets and animals: Yes Pets and animals: cat(s) Current gender identity: female What is your relationship status?: Panel score (0-1 are the most socially isolated patients): 1 Seatbelt use: always Do you feel safe in your relationship?: Yes Female Reproductive History Menstrual control method: progestin IUCD (Mirena lot#[id number] exp 07/2020) History History 4 Para 3 Hx # Term Pregnancies 3 Multiple births 0 Hx # Pregnancies 0 Ectopic pregnancies 0 AB induced 0 Hx Number of Living Children 3 AB spontaneous 0 Past Pregnancies Del. Date GA/Weeks # Outcome Route Wgt Sex Labor Lgth Anesthes ia Location [facility] 03/05/09 41 No Successful vaginal 6 lb 13 oz Male [address] [place] 07/02/16 39 Yes Successful vaginal 6 lb 11 oz Female 2-3 hrs [facility] - [facility] 01/06/18 38 No Successful vaginal 6 lb 11 oz Female 2-3 hr [facility] - [facility] Delivery Date: 03/05/09 IOL for postdates Giovani; epidural Buffy Jang Delivery Date: 07/02/16 nml Brya Buffy Jang Delivery Date: 01/06/18 nml , Buffy [facility]row Meds Home Medications and Allergies Home Medications Medication Instructions Recorded Confirmed Type prenat.vits,sakina,kko-hain-vuvhn 1 tab PO DAILY 02/27/19 02/20/20 History Allergies Allergy/AdvReac Type Severity Reaction Status Date / Time No Known Allergies Allergy Unverified 02/29/20 15:33 Exam Const General: anxious (Tearful) Nutritional Appearance: average body habitus Orientation: alert, awake and oriented x3 Resp Effort & Inspection: normal respiratory effort Auscultation: clear to auscultation bilaterally Cardio Rate: regular rate Rhythm: regular rhythm GI Palpation: soft, not rigid and nontender General: deferred ( performed by CNM prior to my arrival.) Skin General skin exam: no rashes or lesions noted and pallor Extrem General: normal to inspection, full ROM and capillary refill normal Psych Appearance: disheveled Speech and Movement: other (Tearful able to respond to questions regarding her understanding of procedu) Mood: anxious mood Affect: labile affect Attitude: cooperative Thought Process: normal Thought Content: normal Insight: insight good Judgment: judgment good Results Labs Result diagrams: 03/02/20 06:49 Labs: Laboratory Results - last 24 hr 03/01/20 03/01/20 03/02/20 22:44 22:44 06:49 WBC 14.86 H RBC 4.40 Hgb 12.3 Hct 37.6 MCV 85.5 MCH 28.0 MCHC 32.7 RDW 12.8 Plt Count 186 MPV 11.1 H PT INR APTT Fibrinogen 340 Patient ABO/Rh AB Negative Antibody Screen Positive Antibody Identification Anti-D 03/02/20 03/02/20 06:49 06:49 WBC 17.02 H RBC 3.32 L Hgb 9.4 L D Hct 28.6 L D MCV 86.1 MCH 28.3 MCHC 32.9 RDW 13.0 Plt Count 183 MPV 11.3 H PT 9.3 INR 0.9 APTT 23.3 Fibrinogen Patient ABO/Rh Antibody Screen Antibody Identification Last Vital Signs Temp 98.8 F 03/02/20 09:45 Pulse 81 03/02/20 09:45 Resp 24 03/02/20 09:45 BP 124/86 03/02/20 09:45 Pulse Ox 99 03/02/20 09:45 COVID-19 Screening Have you,or household,traveled outside [place] in last 14 days?: No Had IN PERSON contact w/suspected or confirmed C-19 person: No
[2020-03-02] MEDS: Bupivacaine 0.25% Pres-Free 30 ML VIAL (12:47)
[2020-03-02] MEDS: Tranexamic Acid 1,000 MG/10 ML VIAL 1000 MG (12:53)
--- NOTE | 2020-03-02 13:15 | PLAC_PTH ---
PATIENT: DWIGHT LUO LOC: OBS U#:[id number] AGE/SX: 29/F ROOM: OBS.304 RE03/01/[address]: Rachele Cali : 1990 BED: A DIS: 03/03/2020 SPEC #: [id number] RECD: 03/03/20 12:43 STATUS: ARNAV REQ #: [id number] NAVI: 03/02/20 13:[address]: Rachele Cali DEPT: Surgical Specimen RECD BY: Yanira Geuvara ENTERED: 03/03/20 12:45 SP TYPE: PLAC OTHR DR: Radha Jeff RN Tissues: 1 - PLACENTA (3RD TRIMESTER) Procedures: GROSS AND MICRO LEVEL 4 Comments: [id number]
--- NOTE | 2020-03-02 13:39 | W.PM.OP ---
Date of service: 03/02/20 Time of Service: 13:39 Operative Note Operative Note DATE OF PROCEDURE: 03/02/20 PRE-OP DIAGNOSIS: Vaginal delivery, hemorrhage POST-OP DIAGNOSIS: same (And retained placental fragment) PROCEDURE: Suction D&C SURGEON: Madhuri Obrien ANESTHESIA: MAC ESTIMATED BLOOD LOSS: 300 PATHOLOGY: other (Uterine contents to pathology) COMPLICATIONS: None Patient was transported to: floor Patient's condition: stable Indications: 29-year-old female who underwent a spontaneous vaginal delivery early on the morning of 03/02/2020 and developed episodic post bleeding not responsive to medical management. Findings: Normal-appearing cervix with fragment of placental tissue in the lower uterine segment otherwise is smooth uterine cavity with normal configuration. Procedure Description: Patient was taken to the operating room where she was placed in the dorsal supine position and MAC monitored anesthesia care was administered without difficulty. 2 g of Ancef were administered. She was then placed in the dorsal lithotomy position in [facility] stirrups. A surgical timeout was performed she was prepped and draped in the usual sterile fashion. A weighted speculum was placed in the vagina the cervix was grasped and infiltrated with 1 cc of quarter percent Marcaine without epinephrine a paracervical block was performed with quarter percent Marcaine without epinephrine injected at the 4 and 8:00 paracervical spaces respectively. Is copious amount of blood from the uterus that was wiped away and I was able to place a sterile gloved hand into the lower uterine segment and grasp removed intact a piece of placental tissue with attached clot. The tissue was passed off of the operative field and a manual inspection of the entire uterus was performed with no evidence of retained products. Suction aspiration followed by a banjo curettage was performed and no other tissue was obtained. The bleeding from the uterus have subsided I placed a single 2-0 Vicryl suture on the anterior lip of the cervix were the tenaculum had lacerated the cervix. The site was hemostatic at the completion procedure. Instruments were removed from the patient's vagina her uterus is firm small and mobile on bimanual exam. She is placed in the dorsal supine position awakened from anesthesia and transported to center in stable condition lap needle counts correct x2
[2020-03-02] MEDS: Normal Saline Flush 10 ML SYR (14:49)
[2020-03-02 22:19] LABS: COVID-19 RT-PCR UVMMC Result Negative (Negative)
[2020-03-03] VITALS (13 sets, daily range): BP systolic 92–122; BP diastolic 47–73; PULSE 84–101; RESP 14–20; TEMP 36.9–37.4; O2SAT 98–100
[2020-03-03 07:33] LABS: MCH 28.5 pg (27.0-33.0); MCHC 32.5 % (32.0-36.0); MCV 87.6 fL (80-95); Platelet Count 166 10^3/uL (130-400); RBC 1.93 10^6/uL (3.93-5.22); RDW 13.4 % (11.7-14.6); RDW-SD 42.2 fL; WBC 12.48 10^3/uL (4.4-10.8)
[2020-03-03 07:48] LABS: HCT 16.9 % (36.0-46.0); HGB 5.5 g/dL (11.2-15.7)
--- NOTE | 2020-03-03 08:32 | OBPPV_ITS ---
Date of service: 03/03/20 Time of Service: 08:32 Assessment and Plan Assessment and plan (1) hemorrhage, third stage, delivered: Status: Acute Assessment and plan: Patient has consented to 2 units of packed red blood cells to be administered today. We will continue to assist her with activities of daily living and infant care. (2) Anemia: Status: Chronic Qualifiers: Other causes of anemia: acute posthemorrhagic Subjective Subjective Patient comments: No complaints and Tolerating diet [place] baby status: Doing well and Nursing well Narrative: Postop day/ day #1. Patient underwent a spontaneous vaginal delivery early on the morning of 03/02/2020 she proceeded to have intermittent uterine bleeding and associated atony and had a D&C yesterday morning with retrieval of a retained piece of placenta. Her postop course has been satisfactory she has been out of bed caring for her infant tolerating a regular diet. Mornings CBC returned with a low H&H. I counseled the patient and recommended transfusion of 2 units of packed red blood cells. She is agreeable to the plan. Exam Physical Exam Vital signs: Temp Pulse Resp BP Pulse Ox 98.4 F 94 H 16 106/67 100 03/03/20 07:30 03/03/20 07:30 03/03/20 07:30 03/03/20 07:30 03/02/20 19:25 Constitutional Constitutional: no acute distress HEENT Exam HEENT Exam: Not Done Neck Exam Neck Exam: Not Done Respiratory Exam Respiratory Exam: Normal Cardiovascular Exam Cardiovascular Exam: Normal Abdominal Exam Abdomen: Tender Comments: Nontender Fundal Exam Fundus: Below Umbilicus Rectal Exam Rectal Exam: Not Done Extremities Exam Extremity Exam: Normal, Full ROM and Pallor Back/Spine/Pelvis Exam Back Exam: Normal Skin Exam Skin Exam: Normal Neurological Exam Neurological Exam: Not Done Psychiatric Exam Psychiatric Exam: Normal Results Hemoglobin/Hematocrit: Hgb 5.5 g/dL (11.2-15.7) L* D 03/03/20 07:22 Hct 16.9 % (36.0-46.0) L* D 03/03/20 07:22 Abnormal Lab Findings: Abnormal Labs 03/01/20 03/01/20 03/02/20 22:44 22:44 06:49 WBC 14.86 H 17.02 H RBC 3.32 L Hgb 9.4 L D Hct 28.6 L D MPV 11.1 H 11.3 H Crossmatch See Detail 03/03/20 07:22 WBC 12.48 H RBC 1.93 L Hgb 5.5 L* D Hct 16.9 L* D MPV Crossmatch
[2020-03-03] MEDS: Acetaminophen 325 MG TAB 650 MG PO (09:32)
[2020-03-03] MEDS: diphenhydrAMINE 25 MG CAP PO (09:33)
--- NOTE | 2020-03-03 17:29 | W.PM.PROGNOT ---
Date of Service Date of service: 03/03/20 Time of Service: 17:30 Assessment and Plan Assessment and plan (1) hemorrhage, third stage, delivered: Status: Acute Assessment and plan: S/P 2 units PRBCS. Strong desire for D/C tonight. Post transfusion H&H are pending. Discussed healthy habits, good nutrition and hydration, along witht e pathophysiology of acute blood loss and its effect on the cardiovascular system If HGB < 7.5 would consider and additional unit prior to D/C home (2) Anemia: Status: Chronic Qualifiers: Other causes of anemia: acute posthemorrhagic Subjective Subjective Patient reports: no new complaints, feels better, tolerating liquids well and afebrile; denies nausea Interval history since last seen: PAtient has a strong desire to be d/c'd today. Has adequate help at home. Is not actively bleeding. Has received 2 units PRBCs Exam Const General: cooperative, no acute distress, well developed and well groomed HENMT Mouth: oral mucosae normal and lip normal (pale) Eyes General: appearance normal, both eyes and all related structures Resp Effort & Inspection: normal respiratory effort Cardio Rate: regular rate Objective Last Vital Signs Temp 98.9 F 03/03/20 16:15 Pulse 89 03/03/20 16:15 Resp 19 03/03/20 16:15 BP 116/70 03/03/20 16:15 Pulse Ox 98 03/03/20 16:15 Laboratory Results - last 24 hr 03/01/20 03/01/20 03/03/20 22:44 22:55 07:22 WBC 12.48 H RBC 1.93 L Hgb 5.5 L* D Hct 16.9 L* D MCV 87.6 MCH 28.5 MCHC 32.5 RDW 13.4 Plt Count 166 MPV 11.0 COVID-19 PCR Negative Nasopharyn COVID-19 PCR Not Applicable Ref Test Perform Site [facility] lab Patient ABO/Rh AB Negative Antibody Screen Positive Antibody Identification Anti-D Crossmatch See Detail
[2020-03-03 17:39] LABS: HCT 24.5 % (36.0-46.0); HGB 7.9 g/dL (11.2-15.7)
--- NOTE | 2020-03-03 18:04 | W.PM.OBPNV1 ---
Date of service: 03/03/20 Time of Service: 18:04 Assessment and Plan Assessment and plan (1) hemorrhage, third stage, delivered: Status: Acute Assessment and plan: Stable (2) Anemia: Status: Chronic Assessment and plan: improved Qualifiers: Other causes of anemia: acute posthemorrhagic (3) (normal spontaneous vaginal delivery): Status: Acute Subjective Subjective Interval history: Patient recieved 2 units PRBCs Post transfusion HGB 7.9 No further bleeding OK fo rD/C Patient comments: No complaints, Pain well controlled, Tolerating diet and Flatus present [place] baby status: Doing well and Nursing well feeding status: Exclusively breast feeding Exam Physical Exam Vital signs: Temp Pulse Resp BP Pulse Ox 98.9 F 89 19 116/70 98 03/03/20 16:15 03/03/20 16:15 03/03/20 16:15 03/03/20 16:15 03/03/20 16:15 HEENT Exam HEENT Exam: Normal Respiratory Exam Respiratory Exam: Normal Cardiovascular Exam Cardiovascular Exam: Normal Fundal Exam Fundus: Below Umbilicus and Firm Extremities Exam Extremity Exam: Normal; negative Calf Tenderness Results Hemoglobin/Hematocrit: Hgb 7.9 g/dL (11.2-15.7) L D 03/03/20 17:20 Hct 24.5 % (36.0-46.0) L D 03/03/20 17:20 Abnormal Lab Findings: Abnormal Labs 03/01/20 03/01/20 03/02/20 22:44 22:44 06:49 WBC 14.86 H 17.02 H RBC 3.32 L Hgb 9.4 L D Hct 28.6 L D MPV 11.1 H 11.3 H Crossmatch See Detail 03/03/20 03/03/20 07:22 17:20 WBC 12.48 H RBC 1.93 L Hgb 5.5 L* D 7.9 L D Hct 16.9 L* D 24.5 L D MPV Crossmatch
--- NOTE | 2020-03-04 11:24 | DSE_ITS ---
Date of service: 03/04/20 DS: Diagnosis Discharge Diagnosis (1) hemorrhage, third stage, delivered: Status: Acute (2) Anemia: Status: Chronic (3) (normal spontaneous vaginal delivery): Status: Acute Discharge Plan Disposition Patient Disposition: HOME Condition: Stable Discharge Details Reason For Visit: VAGINAL DELIVERY, HEMORRHAGE, D&C Admit Date/Time: 03/01/20 22:32 Admit Provider: Ritika Black Attending Provider: Rachele Cali Primary Care Provider: Radha Jeff [facility] Hospital Course: Patient had an , followed by a post hemorrhage with a D&C and repair of cervical laceration. Post HGB low at 5.5, transfused 2 units of PRBCs. Stable after transfusion Home Meds and New Rx's Prescriptions: New ibuprofen 800 mg tablet 800 mg PO Q8H PRNQty: 30 RF: 1 ferrous sulfate [iron] 325 mg (65 mg iron) tablet 325 mg PO DAILY Qty: 90 RF: 0 Continued prenat.vits,sakina,pdj-abgt-hqcti Tablet 1 tab PO DAILY RF: 0 Discharge Instructions Instructions: Bleeding (GEN) Activity:: Activity as Tolerated Equipment/Supplies:: No Equipment Needed Diet:: Normal Diet Discharge Orders Discharge Orders: Discharge Order (Routine); Ordered 03/03/20 Ordered By: Melodie Enciso Discharge Data Discharge Date/Time-TO BE ENTERED AT DEPARTURE: 03/03/20 19:50 DS: Summary Status at Discharge Functional status at discharge: independent ambulation Overall status at discharge: patient is progressing back to baseline Mental Status: mental status grossly normal Speech and Movement: speech and movement normal Mood: congruent mood Affect: normal affect Exam Narrative Exam Narrative: See progress note examination dated 03/03/2020 Psych Mental Status: mental status grossly normal Speech and Movement: speech and movement normal Mood: congruent mood Affect: normal affect DS: Data Vitals/I&O Vitals and I&O: Vital Signs Temperature 98.6 F 03/03/20 19:05 Pulse 90 03/03/20 19:05 Pulse Rhythm Regular 03/03/20 19:05 Respiratory Rate 20 03/03/20 19:05 Respiratory Depth Normal 03/03/20 19:05 Blood Pressure 108/67 03/03/20 19:05 Blood Pressure Mean 80 09/28/20 19:05 Pulse Oximetry 98 03/03/20 16:15 Oxygen Delivery Method Room Air 03/03/20 15:28 Oxygen Flow Rate 0 03/03/20 15:28 Pain Level 2 03/03/20 09:32 Intake & Output 03/03/20 03/03/20 03/04/20 11:59 23:59 11:59 Intake Total 1553 / 3853 2300 / 3853 Output Total 800 / 800 Balance 1553 / 3053 1500 / 3053 Intake: IV 1253 / 1253 Oral 1250 / 1250 Blood Product 300 / 600 300 / 600 Rbc Leuko Reduced Unit 300 / 300 [id number] Rbc Leuko Reduced Unit 300 / 300 [id number] Other 750 / 750 Output: Urine 800 / 800 Data Completed and Pending Labs on day of discharge: Labs from last 24 hours 03/03/20 03/01/20 17:20 22:44 Hgb 7.9 L D Hct 24.5 L D Patient ABO/Rh AB Negative Antibody Screen Positive Antibody Identification Anti-D Crossmatch See Detail [facility] Medical History abnormalpap smears, last 07/01/15 ASCUS POS HPV HPV Vaccines (normal spontaneous vaginal delivery) Family History Mother Hyperlipidemia Father Personal history of malignant neoplasm lung cancer Heart disease Myocardial infarction 3 NC Bypass Sister No problems noted. Brother No problems noted. Brother No problems noted. Brother No problems noted. Son No problems noted. Other Substance abuse Social History Smoking/Tobacco Use Status: Former Tobacco Use Quit Date: 07/07/15 Quit status: has quit before Alcohol Intake: never Substance use type: does not use Adopted: No Foster care: No Number of Children: 2 current occupation: [employer] Pets and animals: Yes Pets and animals: cat(s) Current gender identity: female What is your relationship status?: Panel score (0-1 are the most socially isolated patients): 1 Seatbelt use: always Do you feel safe in your relationship?: Yes Female Reproductive History Menstrual control method: progestin IUCD (Mirena lot#[id number] exp 07/2020) History History 4 Para 3 Hx # Term Pregnancies 3 Multiple births 0 Hx # Pregnancies 0 Ectopic pregnancies 0 AB induced 0 Hx Number of Living Children 3 AB spontaneous 0 Past Pregnancies Del. Date GA/Weeks # Outcome Route Wgt Sex Labor Lgth Anesthes ia Location Prov Complic 03/05/09 41 No Successful vaginal 6 lb 13 oz Male [address] [facility] 07/02/16 39 Yes Successful vaginal 6 lb 11 oz Female 2-3 hrs [facility] - [facility] 01/06/18 38 No Successful vaginal 6 lb 11 oz Female 2-3 hr [facility] - [facility] Delivery Date: 03/05/09 IOL for postdates [facility]; epidural [facility] Delivery Date: 07/02/16 nml [facility] Delivery Date: 01/06/18 nml , [facility]
== END 2020-03-03 19:50 | disposition home or self-care (01) | DRG 797 ==
PROVIDERS: Obstetrics & Gynecology; Obstetrics & Gynecology Gynecology; Admitting Provider Advanced Practice Midwife; PCP Family Medicine; Visit Provider Advanced Practice Midwife
PROC: 10D17ZZ Extraction of Products of Conception, Retained, Via Natural or Artificial Opening (ICD-10-PCS; CPT 59841; principal; 2020-03-02 11:30)
DX: O72.0 Third-stage hemorrhage (principal); D62 Acute posthemorrhagic anemia; Z37.0 Single live birth; Z3A.39 39 weeks gestation of pregnancy; Z67.31 Type AB blood, Rh negative; Z11.59 Encounter for screening for other viral diseases; Z87.59 Personal history of other complications of pregnancy, childbirth and the puerperium
CPT/HCPCS: 59414; 59160; 36415; 36430; 85027; 85384; 86850; 86900; 86901; 86920; 88305; 99232; 99239; NC; U0003; 85014; 85018; 85610; 85730; 86870; 88307; J0690; J2210; J2250; J2590; P9016

== ENCOUNTER 2020-04-14 13:45 | Outpatient (REF) | payer BC, SELFPAY ==
[2020-04-16 03:28] LABS: Chlamydia amplified RNA Negative (Negative); N gonorrhoeae amplified RNA Negative (Negative); Source CERVIX
== END 2020-04-14 14:05 ==
LOC: LBN 13:45
PROVIDERS: PCP Family Medicine; Visit Provider Advanced Practice Midwife
DX: Z11.3 Encounter for screening for infections with a predominantly sexual mode of transmission (principal)
CPT/HCPCS: 87491; 87591